=== PATIENT | female | born 1940 | race Two or more races ===

== ENCOUNTER 2023-06-16 20:30 | Emergency (ER) | payer MEDICARE, SELFPAY ==
[2023-06-16 20:51] VITALS: BP 121/66; PULSE 83; RESP 18; TEMP 36.1; O2SAT 97
--- NOTE | 2023-06-16 21:24 | ED.GENADULT ---
HPI - General Adult General Chief complaint: Unspecified Complaint, Adult Stated complaint: Tested Positive for Covid Time Seen by Provider: 06/16/23 20:54 History of Present Illness HPI narrative: This 82-year-old female comes in with generalized malaise, cough, and report of a fever that started today. She states that she tested positive for COVID. She arrives here in no acute distress and has normal vital signs. Related Data Home Medications Medication Instructions Recorded Confirmed atorvastatin 40 mg tablet 40 mg PO DAILY 06/16/23 06/16/23 furosemide 20 mg tablet (Lasix) 20 mg PO DAILY 06/16/23 06/16/23 omeprazole 20 mg capsule,delayed 20 mg PO DAILY 06/16/23 06/16/23 release Previous Rx's Medication Instructions Recorded nirmatrelvir 150 mg-ritonavir 100 See Rx Instructions PO .COMPLEX 06/16/23 mg tablets in a dose pack #20 ea (Paxlovid) Allergies Allergy/AdvReac Type Severity Reaction Status Date / Time iodine Allergy Unknown Verified 06/16/23 20:49 nisoldipine [From Sular] Allergy Unknown Verified 06/16/23 20:49 Review of Systems Status of ROS: Reports: 10 or more systems reviewed and unremarkable except as noted in History and below Narrative: Constitutional: No weight gain or loss. She reports fever. Eyes: No discharge. No vision changes. HENT: No congestion, no sore throat, no ear pain. Cardiovascular: No chest pain, no palpitations. Respiratory: No shortness of breath, no wheezes. She reports a cough. Gastrointestinal: No abdominal pain, no vomiting, no diarrhea. Genitourinary: No dysuria, no hematuria. Musculoskeletal: Normal range of motion. Skin: No rashes, no pruritis. Neurological: No dizziness, weakness, sensory change, speech change. Endo/Heme/Allergies: No bruising or bleeding. No polydipsia. Pysch: no suicidality, no anxiety, no insomnia. All other systems reviewed and are negative. Exam Narrative: Exam Narrative: Constitutional: Well-developed, well-nourished, no acute distress. HEENT: Normocephalic, atraumatic. Neck: Normal range of motion. Nontender. Supple. Heart: Regular. No murmurs. Normal rate. Intact distal pulses. Lungs: Clear to auscultation. No chest discomfort. No wheezes, rhonchi, or rales. Abdomen: Normal bowel sounds. Nontender. No rebound tenderness. Genitalia: Deferred. Back: No midline tenderness. Normal range of motion. Extremities: Normal range of motion. No injury. Skin: Intact. No rash. Warm. No erythema or pallor. Neurologic: No altered sensation. No weakness. Alert and oriented. Psychiatric: No suicidality. No anxiety or depression. No insomnia. Nursing notes and vitals signs are reviewed. Const: Vital Signs, click to edit/add: Vital Signs - 24 hr 06/16/23 20:51 Temperature 97.0 F L Pulse Rate [Left P ulse Oximeter] 83 Respiratory Rate 18 Blood Pressure [Ri ght Upper Arm] 121/66 Pulse Oximetry 97 Oxygen Delivery Me thod Room Air Course Vital Signs Vital signs: Initial Vital Signs Temperature 97.0 F L 06/16/23 20:51 Temperature Source Temporal Artery Scan 06/16/23 20:51 Pulse Rate 83 06/16/23 20:51 Pulse Rhythm Regular 06/16/23 20:51 Respiratory Rate 18 06/16/23 20:51 Blood Pressure 121/66 06/16/23 20:51 Blood Pressure Mean 84 06/16/23 20:51 Blood Pressure Position Sitting 06/16/23 20:51 Pulse Oximetry 97 06/16/23 20:51 Oxygen Delivery Method Room Air 06/16/23 20:51 Vital Signs Temperature 97.0 F L 06/16/23 20:51 Pulse Rate 83 06/16/23 20:51 Respiratory Rate 18 06/16/23 20:51 Blood Pressure 121/66 06/16/23 20:51 Pulse Oximetry 97 06/16/23 20:51 Oxygen Delivery Method Room Air 06/16/23 20:51 Temperature 97.0 F L 06/16/23 20:51 Pulse Rate 83 06/16/23 20:51 Respiratory Rate 18 06/16/23 20:51 Blood Pressure 121/66 06/16/23 20:51 Pulse Oximetry 97 06/16/23 20:51 Oxygen Delivery Method Room Air 06/16/23 20:51 Medical Decision Making MDM Narrative Medical decision making narrative: This 82-year-old female tested positive for COVID prior to arrival. She reports symptoms that are characteristic of a COVID infection. The patient has normal vital signs. She is not using any accessory muscles for breathing and has normal oximetry and pulse rate. She states that she is not taking any medications. She does have atorvastatin listed in her medication list but reports that she has not taken this for the past couple weeks. She is then a candidate for Paxlovid. Paxilovid would interact with atorvastatin but she has not been taking this medicine. I did describe the benefits and potential adverse effects of this medication. A prescription is provided for this. I also described signs and symptoms that would indicate a need for return and re-evaluation. Discharge Plan Discharge Clinical Impression: COVID-19 Patient Disposition: Home, Self-Care Condition: Stable Additional Instructions: Take medication as prescribed. Use [id number] medicines also as needed and directed. Follow up with MD or return if worsening. Prescriptions: New Paxlovid 150-100 mg tablets,dose pack See Rx Instructions .ROUTE .COMPLEX Qty: 20 0RF Rx Instructions: orally per package directions No Action atorvastatin 40 mg tablet 40 mg PO DAILY furosemide [Lasix] 20 mg tablet 20 mg PO DAILY omeprazole 20 mg capsule,delayed release(DR/EC) 20 mg PO DAILY Stand Alone Forms: [employer] Info Instructions
== END 2023-06-16 22:08 | disposition home or self-care (01) ==
LOC: ED 21:51
PROVIDERS: Emergency Provider Emergency Medicine Emergency Medical Services
DX: U07.1 COVID-19 (principal)
CPT/HCPCS: 99283; 99284